=== PATIENT | female | born 1935 | race Asian ===

== ENCOUNTER 2018-12-27 10:44 | Emergency (ER) | payer MEDICAID ==
[~2018-12-27] VITALS: Ht 165.1 cm; Wt 63.5 kg
[2018-12-27 10:56] VITALS: Ht 165.1 cm; Wt 63.5 kg
[2018-12-27 12:38] VITALS: BP 155/90
== END 2018-12-27 12:58 | disposition home or self-care (01) ==
LOC: ED 10:44
DX: S16.1XXA Strain of muscle, fascia and tendon at neck level, initial encounter (principal); S00.83XA Contusion of other part of head, initial encounter; S60.221A Contusion of right hand, initial encounter; M50.222 Other cervical disc displacement at C5-C6 level; V48.6XXA Car passenger injured in noncollision transport accident in traffic accident, initial encounter; Y93.89 Activity, other specified; Y92.414 Local residential or business street as the place of occurrence of the external cause; Y99.8 Other external cause status